=== PATIENT | female | born 2000 | race Caucasian/White ===

== ENCOUNTER 2023-05-25 13:42 | Emergency (ER) | payer OTHER ==
[2023-05-25 14:01] VITALS: BP 116/80; PULSE 66; RESP 15; TEMP 98.5; BMI 27.6
[2023-05-25] MEDS ORDERED: ALBUTEROL SO4 HFA INHALER IH ONE (15:07)
[2023-05-25] MEDS ORDERED: MECLIZINE HCL 25 MG TABLET (FP) PO ONE (15:47)
[2023-05-25 16:14] LABS: BASO % 0.6 % (0-2.0); EOS % 0.6 % (0-4.5); HEMATOCRIT 42.2 % (32.4-45.2); HEMOGLOBIN 13.4 GM/dL (10.7-15.3); LYMPH % 34.1 % (8-40); MCH 27.5 pg (25.7-33.7); MCHC 31.8 g/dl (32.0-36.0); MEAN CELL VOLUME 86.4 fl (80-96); MEAN PLT VOLUME 10.7 fl (7.5-11.1); MONO % 5.4 % (3.8-10.2); NEUT % 59.3 % (42.8-82.8); PLATELET COUNT 245 10^3/uL (134-434); RBC 4.89 M/mm3 (3.60-5.2); RDW 14.7 % (11.6-15.6); WHITE BLOOD COUNT 8.1 K/mm3 (4.0-10.0)
[2023-05-25 16:34] LABS: POTASSIUM 4.6 mmol/L (3.5-5.1)
[2023-05-25 16:38] LABS: ALBUMIN 4.1 g/dl (3.4-5.0)
[2023-05-25 16:39] LABS: BLOOD UREA NITROGEN 6.9 mg/dL (7-18); CALCIUM 9.6 mg/dL (8.5-10.1); MAGNESIUM 2.3 mg/dL (1.8-2.4)
[2023-05-25 16:41] LABS: CREATININE 0.7 mg/dL (0.55-1.3)
[2023-05-25 16:42] LABS: BILIRUBIN,TOTAL 0.4 mg/dL (0.2-1)
[2023-05-25 16:43] LABS: TOT PROT 8.3 g/dl (6.4-8.2)
== END 2023-05-25 18:46 | disposition admitted as inpatient to this hospital (09) ==
LOC: JER 13:42
DX: R07.9 Chest pain, unspecified (principal)
CPT/HCPCS: 36415; 71046-TC-FY; 80053; 83735; 84484; 84703; 85025; 93005; 93010; 99285-25

== ENCOUNTER 2023-09-15 18:37 | Emergency (ER) | payer SELFPAY ==
[2023-09-15 19:16] VITALS: BP 103/69; PULSE 91; RESP 17; TEMP 98.9; BMI 29.7
[2023-09-15] MEDS ORDERED: ONDANSETRON 4 MG/2 ML VIAL IVPUSH ONE (19:41)
[2023-09-15] MEDS ORDERED: SODIUM CHLORIDE 0.9% 500 ML INFUS.BAG IV ONE (19:41)
[2023-09-15] MEDS ORDERED: ONDANSETRON 4 MG/2 ML VIAL ONE (20:43)
[2023-09-15 20:53] LABS: BASO % 0.5 % (0-2.0); EOS % 1.2 % (0-4.5); HEMOGLOBIN 14.8 GM/dL (10.7-15.3); LYMPH % 43.4 % (8-40); MCH 27.2 pg (25.7-33.7); MCHC 32.2 g/dl (32.0-36.0); MEAN CELL VOLUME 84.5 fl (80-96); MEAN PLT VOLUME 10.4 fl (7.5-11.1); MONO % 8.3 % (3.8-10.2); NEUT % 46.6 % (42.8-82.8); PLATELET COUNT 221 10^3/uL (134-434); RBC 5.44 M/mm3 (3.60-5.2); RDW 14.7 % (11.6-15.6); WHITE BLOOD COUNT 6.5 K/mm3 (4.0-10.0)
[2023-09-15 21:03] LABS: POTASSIUM 4.3 mmol/L (3.5-5.1)
[2023-09-15 21:08] LABS: CREATININE 0.7 mg/dL (0.55-1.3)
[2023-09-15 21:42] LABS: EPI CELLS 31 /uL (0-25.1); HYALINE CASTS 1 /uL (0-3.1); URINE APPEARANCE CLEAR; URINE BACTERIA 417 /uL (0-1359); URINE BILIRUBIN NEGATIVE (NEGATIVE); URINE COLOR YELLOW; URINE GLUCOSE (UA) NEGATIVE (NEGATIVE); URINE KETONE TRACE (NEGATIVE); URINE LEUK ESTERASE TRACE (NEGATIVE); URINE NITRITE NEGATIVE (NEGATIVE); URINE PROTEIN NEGATIVE (NEGATIVE); URINE RBC 4 /uL (0-23.9); URINE WBC 24 /uL (0-25.8)
[2023-09-15 22:26] LABS: URINE CRYSTALS FEW /hpf
== END 2023-09-15 22:25 | disposition home or self-care (01) ==
LOC: JER 18:37 → JERFT 18:37 → JER 22:25
PROC: 3E033GC Introduction of Other Therapeutic Substance into Peripheral Vein, Percutaneous Approach (ICD-10-PCS; principal; 2023-09-15)
DX: R05.9 Cough, unspecified (principal); R09.89 Other specified symptoms and signs involving the circulatory and respiratory systems; R53.83 Other fatigue; R11.2 Nausea with vomiting, unspecified; R12 Heartburn; B34.9 Viral infection, unspecified; J40 Bronchitis, not specified as acute or chronic; Z20.822 Contact with and (suspected) exposure to COVID-19
CPT/HCPCS: 0241U-QW; 36415; 80048; 81003; 84703; 85025; 87086; 87186; 99284-25

== ENCOUNTER 2024-01-11 19:37 | Emergency (ER) | payer OTHER ==
[2024-01-11 19:44] VITALS: TEMP 98; BMI 25.8
[2024-01-11 20:39] LABS: PH,URINE 7.5 (5.0-8.0); URINE APPEARANCE CLEAR; URINE BILIRUBIN NEGATIVE (NEGATIVE); URINE COLOR YELLOW; URINE GLUCOSE (UA) NEGATIVE (NEGATIVE); URINE KETONE NEGATIVE (NEGATIVE); URINE LEUK ESTERASE NEGATIVE (NEGATIVE); URINE NITRITE NEGATIVE (NEGATIVE); URINE PROTEIN NEGATIVE (NEGATIVE)
[2024-01-11 20:42] LABS: HCG,QUALITATIVE URINE Negative
[2024-01-11] MEDS ORDERED: KETOROLAC TROMETHAMINE 30 MG/1 ML VIAL ONE (22:46)
[2024-01-11] MEDS ORDERED: FAMOTIDINE 20 MG/50 ML IVPB 20 MG/50 ML MG IVPB ONE (22:46)
[2024-01-11] MEDS ORDERED: ONDANSETRON 4 MG/2 ML VIAL ONE (22:46)
[2024-01-11] MEDS: FAMOTIDINE 20 MG/50 ML IVPB 20 MG/50 ML MG IVPB ONE (22:51)
[2024-01-11] MEDS: KETOROLAC TROMETHAMINE 30 MG/1 ML VIAL IVPUSH ONE (22:51)
[2024-01-11] MEDS: ONDANSETRON 4 MG/2 ML VIAL IVPUSH ONE (22:51)
[2024-01-11 23:00] LABS: BASO % 0.6 % (0-2.0); EOS % 2.7 % (0-4.5); HEMATOCRIT 41.8 % (32.4-45.2); HEMOGLOBIN 13.2 GM/dL (10.7-15.3); LYMPH % 55.1 % (8-40); MCH 27.7 pg (25.7-33.7); MCHC 31.7 g/dl (32.0-36.0); MEAN CELL VOLUME 87.6 fl (80-96); MEAN PLT VOLUME 10.1 fl (7.5-11.1); MONO % 8.4 % (3.8-10.2); NEUT % 33.2 % (42.8-82.8); PLATELET COUNT 211 10^3/uL (134-434); RBC 4.77 M/mm3 (3.60-5.2); RDW 15.4 % (11.6-15.6); WHITE BLOOD COUNT 5.9 K/mm3 (4.0-10.0)
[2024-01-11 23:59] LABS: POTASSIUM 4.4 mmol/L (3.5-5.1)
[2024-01-12 00:01] LABS: CALCIUM 9.1 mg/dL (8.5-10.1)
[2024-01-12 00:02] LABS: ALBUMIN 3.7 g/dl (3.4-5.0); BLOOD UREA NITROGEN 8.6 mg/dL (7-18)
[2024-01-12 00:05] LABS: CREATININE 0.6 mg/dL (0.55-1.3)
[2024-01-12 00:06] LABS: BILIRUBIN,TOTAL 0.2 mg/dL (0.2-1)
[2024-01-12 01:17] VITALS: BP 108/62; PULSE 68; RESP 16
== END 2024-01-12 01:19 | disposition home or self-care (01) ==
LOC: JER 19:37
PROC: 3E033GC Introduction of Other Therapeutic Substance into Peripheral Vein, Percutaneous Approach (ICD-10-PCS; principal; 2024-01-11)
PROC: 3E0333Z Introduction of Anti-inflammatory into Peripheral Vein, Percutaneous Approach (ICD-10-PCS; 2024-01-11)
PROC: 3E033GC Introduction of Other Therapeutic Substance into Peripheral Vein, Percutaneous Approach (ICD-10-PCS; 2024-01-11)
DX: K52.9 Noninfective gastroenteritis and colitis, unspecified (principal); R10.30 Lower abdominal pain, unspecified; R11.2 Nausea with vomiting, unspecified
CPT/HCPCS: 36415; 76830-TC; 80053; 81003; 83690; 84703; 85025; 87086; 96365; 96375; 99284-25

== ENCOUNTER 2024-01-20 15:58 | Emergency (ER) | payer OTHER ==
[2024-01-20 16:09] VITALS: RESP 18; BMI 22.6
[2024-01-20] MEDS: morphine CARPU-JECT 4 MG/1 ML DISP.SYRIN IVPUSH ONE (17:13)
[2024-01-20] MEDS: SODIUM CHLORIDE 1,000 ML IV STA (17:13)
[2024-01-20 17:15] LABS: BASO % 0.5 % (0-2.0); EOS % 1.9 % (0-4.5); HEMATOCRIT 40.5 % (32.4-45.2); HEMOGLOBIN 13.2 GM/dL (10.7-15.3); LYMPH % 23.1 % (8-40); MCH 28.5 pg (25.7-33.7); MCHC 32.5 g/dl (32.0-36.0); MEAN CELL VOLUME 87.5 fl (80-96); MEAN PLT VOLUME 9.7 fl (7.5-11.1); MONO % 6.8 % (3.8-10.2); NEUT % 67.7 % (42.8-82.8); PLATELET COUNT 231 10^3/uL (134-434); RBC 4.62 M/mm3 (3.60-5.2); RDW 14.8 % (11.6-15.6); WHITE BLOOD COUNT 10.2 K/mm3 (4.0-10.0)
[2024-01-20 17:37] LABS: POTASSIUM 4.3 mmol/L (3.5-5.1)
[2024-01-20 17:37] LABS: HCG,QUALITATIVE URINE Negative
[2024-01-20 17:39] LABS: CALCIUM 9.3 mg/dL (8.5-10.1)
[2024-01-20 17:40] LABS: ALBUMIN 3.9 g/dl (3.4-5.0); BLOOD UREA NITROGEN 8.8 mg/dL (7-18)
[2024-01-20 17:40] LABS: URINE APPEARANCE CLEAR; URINE BILIRUBIN NEGATIVE (NEGATIVE); URINE COLOR YELLOW; URINE GLUCOSE (UA) NEGATIVE (NEGATIVE); URINE KETONE NEGATIVE (NEGATIVE); URINE LEUK ESTERASE NEGATIVE (NEGATIVE); URINE NITRITE NEGATIVE (NEGATIVE); URINE PROTEIN NEGATIVE (NEGATIVE); URINE UROBILINOGEN 0.2 mg/dL (0.2-1.0)
[2024-01-20 17:43] LABS: CREATININE 0.7 mg/dL (0.55-1.3)
[2024-01-20 17:45] LABS: BILIRUBIN,TOTAL 0.1 mg/dL (0.2-1); TOT PROT 8.2 g/dl (6.4-8.2)
[2024-01-20] MEDS ORDERED: ALBUTEROL SO4 HFA INHALER IH ONE (18:17)
[2024-01-20] MEDS: ALBUTEROL SO4 HFA INHALER IH ONE (18:25)
[2024-01-20 20:53] VITALS: BP 112/65; PULSE 80; TEMP 98.2
== END 2024-01-20 20:55 | disposition home or self-care (01) ==
LOC: JER 15:58
PROC: 3E030NZ Introduction of Analgesics, Hypnotics, Sedatives into Peripheral Vein, Open Approach (ICD-10-PCS; principal; 2024-01-20)
PROC: 3E0337Z Introduction of Electrolytic and Water Balance Substance into Peripheral Vein, Percutaneous Approach (ICD-10-PCS; 2024-01-20)
DX: R10.813 Right lower quadrant abdominal tenderness (principal); N83.201 Unspecified ovarian cyst, right side
CPT/HCPCS: 36415; 76830-TC; 80053; 81003; 83690; 84703; 85025; 87086; 87491; 87591; 93005; 93010; 99285-25

== ENCOUNTER 2024-03-05 19:46 | Emergency (ER) | payer OTHER ==
[2024-03-05 20:01] VITALS: BP 102/57; PULSE 76; RESP 18; TEMP 98.6; BMI 25.8
[2024-03-05] MEDS: KETOROLAC TROMETHAMINE 30 MG/1 ML VIAL IM ONE (20:40)
[2024-03-05] MEDS ORDERED: ACETAMINOPHEN 500 MG TABLET (FP) PO ONE ×2 (21:12→22:28)
[2024-03-05] MEDS ORDERED: ACETAMINOPHEN 325 MG TABLET (FP) ONE (22:33)
[2024-03-05] MEDS: ACETAMINOPHEN 650 MG/20.3 ML ORAL SOLUTION (CUPS) PO STA (22:39)
== END 2024-03-05 22:45 | disposition home or self-care (01) ==
LOC: JER 19:46
DX: R07.82 Intercostal pain (principal); M79.605 Pain in left leg; V43.62XA Car passenger injured in collision with other type car in traffic accident, initial encounter
CPT/HCPCS: 71045-TC-FY; 73502-TC-LT-FY; 73552-TC-LT-FY; 73562-TC-LT-FY; 84703; 93005; 93010; 99285-25

== ENCOUNTER 2024-06-02 17:16 | Emergency (ER) | payer OTHER ==
[2024-06-02 17:19] VITALS: BMI 25.8
[2024-06-02] MEDS ORDERED: ACETAMINOPHEN INJECTION 100 ML IVPB ONE (18:53)
[2024-06-02] MEDS ORDERED: METOCLOPRAMIDE HCL INJECTION 10 MG/2 ML VIAL ONE (18:53)
[2024-06-02 18:58] LABS: BASO % 0.4 % (0-2.0); EOS % 1.6 % (0-4.5); HEMATOCRIT 40.1 % (32.4-45.2); LYMPH % 42.8 % (8-40); MCH 27.7 pg (25.7-33.7); MCHC 32.5 g/dl (32.0-36.0); MEAN CELL VOLUME 85.1 fl (80-96); MEAN PLT VOLUME 10.1 fl (7.5-11.1); MONO % 6.3 % (3.8-10.2); NEUT % 48.9 % (42.8-82.8); PLATELET COUNT 202 10^3/uL (134-434); RBC 4.71 M/mm3 (3.60-5.2); RDW 13.5 % (11.6-15.6); WHITE BLOOD COUNT 6.9 K/mm3 (4.0-10.0)
[2024-06-02] MEDS: ACETAMINOPHEN 1000 MG/100 ML BAG IVPB ONE (19:02)
[2024-06-02] MEDS: SODIUM CHLORIDE 0.9% 500 ML INFUS.BAG IV ONE (19:02)
[2024-06-02] MEDS: METOCLOPRAMIDE HCL INJECTION 10 MG/2 ML VIAL IVPB ONE (19:03)
[2024-06-02 19:17] LABS: POTASSIUM 4.5 mmol/L (3.5-5.1)
[2024-06-02 19:19] LABS: ALBUMIN 4.1 g/dl (3.4-5.0); BLOOD UREA NITROGEN 9.7 mg/dL (7-18); CALCIUM 9.8 mg/dL (8.5-10.1)
[2024-06-02 19:23] LABS: CREATININE 0.7 mg/dL (0.55-1.3)
[2024-06-02 19:25] LABS: BILIRUBIN,TOTAL 0.2 mg/dL (0.2-1); TOT PROT 8.2 g/dl (6.4-8.2)
[2024-06-02 21:00] VITALS: BP 112/76; PULSE 89; RESP 16; TEMP 98.3
== END 2024-06-02 21:05 | disposition home or self-care (01) ==
LOC: JER 17:16
PROC: 3E033GC Introduction of Other Therapeutic Substance into Peripheral Vein, Percutaneous Approach (ICD-10-PCS; principal; 2024-06-02)
PROC: 3E033NZ Introduction of Analgesics, Hypnotics, Sedatives into Peripheral Vein, Percutaneous Approach (ICD-10-PCS; 2024-06-02)
DX: R51.9 Headache, unspecified (principal); R55 Syncope and collapse; R11.0 Nausea; Z20.822 Contact with and (suspected) exposure to COVID-19
CPT/HCPCS: 0241U-QW; 36415; 80053; 84484; 84703; 85025; 93005; 93010; 99284-25; J0131